=== PATIENT | female | born 1935 | race Caucasian/White ===

== ENCOUNTER 2017-03-02 13:10 | Inpatient (IN) | payer OTHER ==
[~2017-03-02] VITALS: Ht 162.6 cm; Wt 80.0 kg
[2017-03-02] VITALS (9 sets, daily range): BP systolic 111–138; BP diastolic 65–81
[~2017-03-02 13:10] MED LIST: ARMD EYE SUPPORT PO; ASPIRIN EC325 MG PO; CHILD ASPIRIN81 M1 PO; GLUCOSAMINE &1 EAC1 PO; HYDROCHLOROTH12.5 M3 PO; HYDROCODON-ACE1 EAC7 PO; IRON325 MG PO; PRAVASTATIN SOD40 MG PO; PRILOSEC20 MG PO; SENNA-TIME S T1 EACH PO; TYLENOL EXTRA500 MG PO
[2017-03-02 13:40] LABS: HEMATOCRIT 39.5 % (36.0-46.0); MCH 29.7 PG (29.0-34.0); MCHC 32.7 G/DL (30.0-36.0); MCV 90.8 FL (83-99); MEAN PLAT.VOLUME 11.1 uM^3 (9.5-12.4); PLATELET COUNT 169 K/uL (156-360); RBC DIS.WIDTH-CV 15.6 % (11.8-14.6); RBC DIS.WIDTH-SD 51.1 % (39-53); RED BLOOD COUNT 4.35 M/uL (3.80-5.20); WHITE BLOOD COUNT 5.5 K/uL (4.1-10.2)
[2017-03-02 13:53] LABS: CHLORIDE 108 mEq/L (99-109); POTASSIUM 3.5 mEq/L (3.7-5.4); SODIUM 139 mEq/L (136-147)
[2017-03-02 13:55] LABS: GLUCOSE 183 mg/dL (70-99)
[2017-03-02 13:56] LABS: ANION GAP 10 MEQ/L (2-14)
[2017-03-02 13:59] LABS: GFR ESTIMATE (CALCULATED) > 59 mL/min/; UREA NITROGEN (BUN) 14 mg/dL (9-23)
[2017-03-02 14:01] LABS: TROP-I INTERPRETATION NEGATIVE; TROPONIN-I 0.02 ng/mL (0.0-0.30)
[2017-03-02] MEDS ORDERED: MACULAR VITAMI1 EACH PO (15:49)
[2017-03-02] MEDS ORDERED: LO-DOSE ASPIRIN81 M1 PO (15:49)
[2017-03-02] MEDS ORDERED: PRAVASTATIN SOD20 MG PO (15:51)
[2017-03-02] MEDS ORDERED: VITAMIN PO (15:54)
[2017-03-02] MEDS ORDERED: DUONEB 2.5-0.5 M3 ML AEROSOL (15:55)
[2017-03-02] MEDS ORDERED: MUCINEX DM ER1 EACH PO (15:55)
[2017-03-02] MEDS ORDERED: [UNRECOGNIZED DRUG - CODE] PO (15:56)
[2017-03-03] VITALS (17 sets, daily range): BP systolic 115–173; BP diastolic 57–98
[2017-03-03 05:39] LABS: HEMATOCRIT 33.6 % (36.0-46.0); MCHC 32.7 G/DL (30.0-36.0); MCV 91.6 FL (83-99); MEAN PLAT.VOLUME 11.1 uM^3 (9.5-12.4); PLATELET COUNT 153 K/uL (156-360); RBC DIS.WIDTH-CV 15.6 % (11.8-14.6); RBC DIS.WIDTH-SD 52.8 % (39-53); RED BLOOD COUNT 3.67 M/uL (3.80-5.20); WHITE BLOOD COUNT 4.7 K/uL (4.1-10.2)
[2017-03-03 05:59] LABS: INTER. NORMALIZED RATIO 1.2; PROTHROMBIN TIME 12.3 (9.2-11.2)
[2017-03-03 06:10] LABS: ANION GAP 6 MEQ/L (2-14); CHLORIDE 109 MEQ/L (99-109); GFR ESTIMATE (CALCULATED) > 59 mL/min/; GLUCOSE 128 mg/dL (70-99); POTASSIUM 3.4 MEQ/L (3.7-5.4); SAMPLE HEMOLYSIS CHECK 0; SAMPLE ICTERIC CHECK 0; SAMPLE LIPEMIA CHECK 0; SODIUM 140 MEQ/L (136-147); UREA NITROGEN (BUN) 15 mg/dL (9-23)
[2017-03-03 08:51] LABS: D-DIMER ELISA 0.71 mg/L FEU (< 0.57)
[2017-03-03 09:13] LABS: TROP-I INTERPRETATION NEGATIVE; TROPONIN-I < 0.01 ng/mL (0.0-0.30)
[2017-03-03 11:46] LABS: ADD MIUA? YES; BILIRUBIN NEGATIVE; BLOOD NEGATIVE; COLOR YELLOW ((YELLOW)); GLUCOSE (STRIP) NEGATIVE; KETONES 5; LEUKOCYTES LARGE; NITRITE NEGATIVE; PROTEIN (STRIP) NEGATIVE; SPECIFIC GRAVITY 1.008 (1.000-1.030); UROBILINOGEN 0.2 MG/DL (0.2-1.0)
[2017-03-03 12:03] LABS: BACTERIA RARE /HPF; EPITHELIAL CELLS RARE /HPF; MUCUS TRACE /LPF; RED BLOOD CELLS 0-5 /HPF (0-5); UCUL ADDED? NO; WHITE BLOOD CELLS 0-5 /HPF (0-5)
[2017-03-03 15:47] LABS: TROP-I INTERPRETATION NEGATIVE; TROPONIN-I < 0.01 ng/mL (0.0-0.30)
[2017-03-03 21:17] LABS: TROP-I INTERPRETATION NEGATIVE; TROPONIN-I 0.04 ng/mL (0.0-0.30)
[2017-03-04 04:00] VITALS: BP 141/86
[2017-03-04 05:27] LABS: EOSINOPHIL (%) 1.9 % (0-5); EOSINOPHIL COUNT 0.1 K/uL (0-0.3); HEMATOCRIT 35.1 % (36.0-46.0); IMMATURE GRANULOCYTE (%) 0.3 % (0.0-0.7); INSTRUMENT ABS NEUTROPHIL CT 3.8 K/uL; LYMPHOCYTE COUNT 1.3 K/uL (1.0-2.8); MCH 30.6 PG (29.0-34.0); MCV 92.6 FL (83-99); MEAN PLAT.VOLUME 11.3 uM^3 (9.5-12.4); MONOCYTE (%) 9.7 % (3-12); MONOCYTE COUNT 0.6 K/uL (0-0.8); NEUTROPHIL (%) 65.8 % (45-76); NEUTROPHIL COUNT 3.8 K/uL (1.8-6.4); PLATELET COUNT 168 K/uL (156-360); RBC DIS.WIDTH-CV 15.8 % (11.8-14.6); RBC DIS.WIDTH-SD 53.7 % (39-53); RED BLOOD COUNT 3.79 M/uL (3.80-5.20); WHITE BLOOD COUNT 5.8 K/uL (4.1-10.2)
[2017-03-04 05:57] LABS: ALKALINE PHOSPHATASE 59 IU/L (3-129); ANION GAP 8 MEQ/L (2-14); CHLORIDE 107 MEQ/L (99-109); GFR ESTIMATE (CALCULATED) > 59 mL/min/; GLUCOSE 107 mg/dL (70-99); POTASSIUM 4.1 MEQ/L (3.7-5.4); SAMPLE HEMOLYSIS CHECK 0; SAMPLE ICTERIC CHECK 0; SAMPLE LIPEMIA CHECK 0; SODIUM 140 MEQ/L (136-147); TOTAL BILIRUBIN 0.8 MG/DL (0.0-1.0); UREA NITROGEN (BUN) 11 mg/dL (9-23)
[2017-03-04 11:13] VITALS: BP 141/78
[2017-03-04 12:05] VITALS: BP 145/71
[2017-03-04 16:07] VITALS: BP 129/75
[2017-03-04 19:20] VITALS: BP 142/69
[2017-03-04 23:14] VITALS: BP 123/65
[2017-03-05 04:00] VITALS: BP 150/70
[2017-03-05 05:29] LABS: EOSINOPHIL (%) 0.6 % (0-5); HEMATOCRIT 34.9 % (36.0-46.0); IMMATURE GRANULOCYTE (%) 0.4 % (0.0-0.7); INSTRUMENT ABS NEUTROPHIL CT 4.9 K/uL; MCH 30.7 PG (29.0-34.0); MCHC 33.2 G/DL (30.0-36.0); MCV 92.3 FL (83-99); MEAN PLAT.VOLUME 11.4 uM^3 (9.5-12.4); MONOCYTE (%) 10.4 % (3-12); MONOCYTE COUNT 0.7 K/uL (0-0.8); NEUTROPHIL (%) 73.4 % (45-76); NEUTROPHIL COUNT 4.9 K/uL (1.8-6.4); PLATELET COUNT 183 K/uL (156-360); RED BLOOD COUNT 3.78 M/uL (3.80-5.20); WHITE BLOOD COUNT 6.7 K/uL (4.1-10.2)
[2017-03-05 05:59] LABS: ALKALINE PHOSPHATASE 62 IU/L (3-129); ANION GAP 9 MEQ/L (2-14); CHLORIDE 104 MEQ/L (99-109); GFR ESTIMATE (CALCULATED) > 59 mL/min/; GLUCOSE 144 mg/dL (70-99); POTASSIUM 4.7 MEQ/L (3.7-5.4); SAMPLE HEMOLYSIS CHECK 0; SAMPLE ICTERIC CHECK 0; SAMPLE LIPEMIA CHECK 0; SODIUM 139 MEQ/L (136-147); TOTAL BILIRUBIN 0.9 MG/DL (0.0-1.0); UREA NITROGEN (BUN) 14 mg/dL (9-23)
[2017-03-05 08:40] VITALS: BP 144/71
[2017-03-05 09:25] LABS: BASE EXCESS 5.2 mEq/L (-3 to +3); CARBOXY HGB 2.2 % (0-5); COMMENTS - BLOOD GASES A+C+; DEVICE HFNC; METHEMOGLOBIN 1.6 % (0-1.5); O2 FLOW 50 L/MIN; PCO2 39 mm Hg (35-45); PO2 78 mm Hg (80-100); SITE LR; pH 7.48 (7.35-7.45)
[2017-03-05 09:26] LABS: FI02 80 %; TOTAL RESP RATE 24 resp/min
[2017-03-05 11:17] VITALS: BP 124/79
[2017-03-05 16:09] VITALS: BP 133/73
[2017-03-05 19:20] VITALS: BP 148/85
[2017-03-05 22:44] VITALS: BP 131/63
[2017-03-06 03:15] VITALS: BP 136/88
[2017-03-06 05:13] LABS: EOSINOPHIL (%) 0 % (0-5); HEMATOCRIT 35.2 % (36.0-46.0); IMMATURE GRANULOCYTE (%) 0.5 % (0.0-0.7); INSTRUMENT ABS NEUTROPHIL CT 8.1 K/uL; LYMPHOCYTE COUNT 0.5 K/uL (1.0-2.8); MCHC 33.5 G/DL (30.0-36.0); MCV 92.4 FL (83-99); MEAN PLAT.VOLUME 11.3 uM^3 (9.5-12.4); MONOCYTE (%) 2.5 % (3-12); MONOCYTE COUNT 0.2 K/uL (0-0.8); NEUTROPHIL (%) 91.7 % (45-76); NEUTROPHIL COUNT 8.1 K/uL (1.8-6.4); PLATELET COUNT 190 K/uL (156-360); RBC DIS.WIDTH-CV 15.9 % (11.8-14.6); RBC DIS.WIDTH-SD 53.7 % (39-53); RED BLOOD COUNT 3.81 M/uL (3.80-5.20); WHITE BLOOD COUNT 8.8 K/uL (4.1-10.2)
[2017-03-06 05:58] LABS: ALKALINE PHOSPHATASE 62 IU/L (3-129); ANION GAP 9 MEQ/L (2-14); CHLORIDE 103 MEQ/L (99-109); GFR ESTIMATE (CALCULATED) > 59 mL/min/; POTASSIUM 4.8 MEQ/L (3.7-5.4); SAMPLE HEMOLYSIS CHECK 0; SAMPLE ICTERIC CHECK 0; SAMPLE LIPEMIA CHECK 0; SODIUM 139 MEQ/L (136-147); TOTAL BILIRUBIN 0.8 MG/DL (0.0-1.0); UREA NITROGEN (BUN) 20 mg/dL (9-23)
[2017-03-06 06:00] LABS: GLUCOSE 228 mg/dL (70-99)
[2017-03-06 09:00] VITALS: BP 121/73
[2017-03-06 12:05] VITALS: BP 132/70
[2017-03-06] MEDS ORDERED: XARELTO20 MG PO (14:05)
[2017-03-06 16:07] VITALS: BP 139/73
[2017-03-06 20:18] VITALS: BP 147/86
[2017-03-06 23:08] VITALS: BP 153/86
[2017-03-07 03:37] VITALS: BP 127/64
[2017-03-07 08:00] VITALS: BP 128/68
[2017-03-07 08:01] LABS: EOSINOPHIL (%) 0 % (0-5); HEMATOCRIT 35.4 % (36.0-46.0); IMMATURE GRANULOCYTE (%) 0.6 % (0.0-0.7); IMMATURE GRANULOCYTE COUNT 0.1 K/uL; INSTRUMENT ABS NEUTROPHIL CT 10.9 K/uL; LYMPHOCYTE COUNT 0.4 K/uL (1.0-2.8); MCH 29.7 PG (29.0-34.0); MCHC 31.9 G/DL (30.0-36.0); MCV 92.9 FL (83-99); MEAN PLAT.VOLUME 11.4 uM^3 (9.5-12.4); MONOCYTE COUNT 0.6 K/uL (0-0.8); NEUTROPHIL (%) 90.9 % (45-76); NEUTROPHIL COUNT 10.9 K/uL (1.8-6.4); PLATELET COUNT 212 K/uL (156-360); RBC DIS.WIDTH-CV 16.1 % (11.8-14.6); RBC DIS.WIDTH-SD 54.4 % (39-53); RED BLOOD COUNT 3.81 M/uL (3.80-5.20); WHITE BLOOD COUNT 11.9 K/uL (4.1-10.2)
[2017-03-07 08:44] LABS: ALKALINE PHOSPHATASE 65 IU/L (3-129); ANION GAP 9 MEQ/L (2-14); CHLORIDE 104 MEQ/L (99-109); GFR ESTIMATE (CALCULATED) > 59 mL/min/; GLUCOSE 248 mg/dL (70-99); POTASSIUM 5.1 MEQ/L (3.7-5.4); SAMPLE HEMOLYSIS CHECK 0; SAMPLE ICTERIC CHECK 0; SAMPLE LIPEMIA CHECK 0; SODIUM 139 MEQ/L (136-147); UREA NITROGEN (BUN) 28 mg/dL (9-23)
[2017-03-07 08:53] LABS: TOTAL BILIRUBIN 0.6 MG/DL (0.0-1.0)
[2017-03-07 12:07] VITALS: BP 131/82
[2017-03-07 17:00] VITALS: BP 135/66
[2017-03-07 20:00] VITALS: BP 123/64
[2017-03-08 04:00] VITALS: BP 129/93
[2017-03-08 07:44] LABS: EOSINOPHIL (%) 0.1 % (0-5); IMMATURE GRANULOCYTE (%) 0.5 % (0.0-0.7); IMMATURE GRANULOCYTE COUNT 0.1 K/uL; INSTRUMENT ABS NEUTROPHIL CT 8.6 K/uL; LYMPHOCYTE COUNT 0.4 K/uL (1.0-2.8); MCH 31.5 PG (29.0-34.0); MCHC 33.9 G/DL (30.0-36.0); MCV 92.7 FL (83-99); MEAN PLAT.VOLUME 11.7 uM^3 (9.5-12.4); MONOCYTE COUNT 0.5 K/uL (0-0.8); NEUTROPHIL (%) 90.4 % (45-76); NEUTROPHIL COUNT 8.6 K/uL (1.8-6.4); NRBC (%) 0.2 /100 WBC (0-0); PLATELET COUNT 216 K/uL (156-360); RBC DIS.WIDTH-CV 15.9 % (11.8-14.6); RBC DIS.WIDTH-SD 53.7 % (39-53); RED BLOOD COUNT 3.56 M/uL (3.80-5.20); WHITE BLOOD COUNT 9.5 K/uL (4.1-10.2)
[2017-03-08 07:54] LABS: ALKALINE PHOSPHATASE 62 IU/L (3-129); ANION GAP 8 MEQ/L (2-14); CHLORIDE 100 MEQ/L (99-109); GFR ESTIMATE (CALCULATED) > 59 mL/min/; GLUCOSE 303 mg/dL (70-99); POTASSIUM 5.3 MEQ/L (3.7-5.4); SAMPLE HEMOLYSIS CHECK 2; SAMPLE ICTERIC CHECK 0; SAMPLE LIPEMIA CHECK 0; SODIUM 135 MEQ/L (136-147); TOTAL BILIRUBIN 0.6 MG/DL (0.0-1.0); UREA NITROGEN (BUN) 30 mg/dL (9-23)
[2017-03-08 08:00] VITALS: BP 141/69
[2017-03-08 11:06] LABS: GFR ESTIMATE (CALCULATED) > 59 mL/min/
[2017-03-08 11:08] LABS: VANCOMYCIN, TROUGH 6.6 MCG/ML (10-20)
[2017-03-08 12:00] VITALS: BP 138/62
[2017-03-08 17:04] VITALS: BP 122/75
[2017-03-08 20:00] VITALS: BP 146/87
[2017-03-08 23:55] VITALS: BP 131/74
[2017-03-09 04:00] VITALS: BP 134/65
[2017-03-09 06:55] LABS: EOSINOPHIL (%) 0 % (0-5); HEMATOCRIT 34.3 % (36.0-46.0); IMMATURE GRANULOCYTE (%) 0.9 % (0.0-0.7); IMMATURE GRANULOCYTE COUNT 0.1 K/uL; INSTRUMENT ABS NEUTROPHIL CT 7.2 K/uL; LYMPHOCYTE COUNT 0.3 K/uL (1.0-2.8); MCH 29.4 PG (29.0-34.0); MCHC 32.4 G/DL (30.0-36.0); MCV 90.7 FL (83-99); MEAN PLAT.VOLUME 11.3 uM^3 (9.5-12.4); MONOCYTE (%) 4.9 % (3-12); MONOCYTE COUNT 0.4 K/uL (0-0.8); NEUTROPHIL (%) 90.3 % (45-76); NEUTROPHIL COUNT 7.2 K/uL (1.8-6.4); NRBC (%) 0.3 /100 WBC (0-0); PLATELET COUNT 189 K/uL (156-360); RBC DIS.WIDTH-CV 15.2 % (11.8-14.6); RBC DIS.WIDTH-SD 50.3 % (39-53); RED BLOOD COUNT 3.78 M/uL (3.80-5.20); WHITE BLOOD COUNT 7.9 K/uL (4.1-10.2)
[2017-03-09 07:34] LABS: ANION GAP 7 MEQ/L (2-14); CHLORIDE 99 MEQ/L (99-109); GFR ESTIMATE (CALCULATED) > 59 mL/min/; GLUCOSE 328 mg/dL (70-99); SAMPLE HEMOLYSIS CHECK 0; SAMPLE ICTERIC CHECK 0; SAMPLE LIPEMIA CHECK 0; SODIUM 138 MEQ/L (136-147); UREA NITROGEN (BUN) 31 mg/dL (9-23)
[2017-03-09 07:39] LABS: POTASSIUM 4.1 MEQ/L (3.7-5.4)
[2017-03-09 09:00] VITALS: BP 139/65
[2017-03-09 12:00] VITALS: BP 168/71
[2017-03-09 16:00] VITALS: BP 136/87
[2017-03-09 17:29] LABS: POINT-OF-CARE METER ID UU13113698
[2017-03-09 19:15] VITALS: BP 132/62
[2017-03-09] MEDS ORDERED: MACULAR HEALTH1 EAC1 PO (19:37)
[2017-03-09 22:44] LABS: GLUCOSE 380 mg/dL (70-99)
[2017-03-09 22:59] VITALS: BP 153/81
[2017-03-10 04:20] VITALS: BP 160/81
[2017-03-10 07:37] LABS: Estimated Average Glucose 148 mg/dL (70-123); HEMOGLOBIN A1c (GLYCOHEMOGLOB) 6.8 % HGB (Below 5.7)
[2017-03-10 08:23] LABS: POINT-OF-CARE METER ID UU14174216; POINT-OF-CARE USER ID ENVKC36
[2017-03-10 08:45] VITALS: BP 133/67
[2017-03-10 11:20] VITALS: BP 138/68
[2017-03-10 11:46] LABS: POINT-OF-CARE METER ID UU13113698; POINT-OF-CARE USER ID ENVKC36
[2017-03-10 12:42] LABS: POINT-OF-CARE METER ID UU13113698
[2017-03-10 15:38] VITALS: BP 145/72
[2017-03-10 16:27] LABS: POINT-OF-CARE METER ID UU13113698; POINT-OF-CARE USER ID ENVKC36
[2017-03-10 20:09] VITALS: BP 153/67
[2017-03-10 23:45] VITALS: BP 133/71
[2017-03-11 04:25] VITALS: BP 139/64
[2017-03-11 06:30] LABS: ANION GAP 8 MEQ/L (2-14); CHLORIDE 98 MEQ/L (99-109); GFR ESTIMATE (CALCULATED) > 59 mL/min/; GLUCOSE 268 mg/dL (70-99); POTASSIUM 3.4 MEQ/L (3.7-5.4); SAMPLE HEMOLYSIS CHECK 0; SAMPLE ICTERIC CHECK 0; SAMPLE LIPEMIA CHECK 0; SODIUM 138 MEQ/L (136-147); UREA NITROGEN (BUN) 29 mg/dL (9-23)
[2017-03-11 07:58] VITALS: BP 146/70
[2017-03-11 12:10] VITALS: BP 131/61
[2017-03-11] MEDS ORDERED: ALPRAZOLAM0.25 M2 PO (15:39)
[2017-03-11] MEDS ORDERED: LEVEMIR100 UNIT/2 SC (15:39)
[2017-03-11] MEDS ORDERED: PREDNISONE20 MG PO (15:39)
[2017-03-11] MEDS ORDERED: DOCUSATE SODIU100 MG PO (15:39)
[2017-03-11] MEDS ORDERED: ADVAIR HFA120 INHALA IH (15:39)
[2017-03-11] MEDS ORDERED: LEVOFLOXACIN750 MG PO (15:39)
[2017-03-11] MEDS ORDERED: GUAIFENESI100 MG/5 M PO (15:39)
[2017-03-11] MEDS ORDERED: NOVOLOG PE100 UNITS/ SC ×2 (15:39)
[2017-03-11] MEDS ORDERED: CARDIZEM60 MG PO ×2 (15:39→15:49)
[2017-03-11] MEDS ORDERED: LASIX20 MG PO (15:41)
[2017-03-11] MEDS ORDERED: CARDIZEM CD240 MG PO (15:45)
[2017-03-11] MEDS ORDERED: POTASSIUM CHLO20 ME1 PO (15:47)
[2017-03-11] MEDS ORDERED: LASIX40 MG PO (15:47)
[2017-03-11 16:15] VITALS: BP 127/86
== END 2017-03-11 18:16 | DRG 308 ==
LOC: EME 13:10 → 4EAST 15:05 → EDOF 15:05 → 4EAST 17:08
PROVIDERS: Emergency Medicine; Hospitalist; Internal Medicine; Internal Medicine Cardiovascular Disease
DX: I48.91 Unspecified atrial fibrillation (principal); J96.01 Acute respiratory failure with hypoxia; J18.9 Pneumonia, unspecified organism; I50.31 Acute diastolic (congestive) heart failure; J44.0 Chronic obstructive pulmonary disease with (acute) lower respiratory infection; J90 Pleural effusion, not elsewhere classified; J98.11 Atelectasis; K21.9 Gastro-esophageal reflux disease without esophagitis; M19.90 Unspecified osteoarthritis, unspecified site; E78.5 Hyperlipidemia, unspecified; E87.6 Hypokalemia; H35.30 Unspecified macular degeneration; I11.0 Hypertensive heart disease with heart failure; R73.03 Prediabetes; I25.10 Atherosclerotic heart disease of native coronary artery without angina pectoris; I27.2 Other secondary pulmonary hypertension; E66.9 Obesity, unspecified; Z68.30 Body mass index [BMI] 30.0-30.9, adult; Z85.828 Personal history of other malignant neoplasm of skin; Z82.3 Family history of stroke; Z83.3 Family history of diabetes mellitus; Z82.49 Family history of ischemic heart disease and other diseases of the circulatory system
CPT/HCPCS: 36600; 71010; 71020; 71275; 80048; 80053; 80202; 81003; 82565; 82803; 82948; 83036; 83735; 83880; 84443; 84484; 84999; 85025; 85027; 85379; 85610; 93005; 93306; 93970; 94010; 94640; 94640 76; 94760; 94799; 99202; 99281; 99285; J0456; J0692; J1650; J1815; J1940; J2920; J2930; J3370; J7050

== ENCOUNTER 2017-03-30 04:13 | Observation (INO) | payer OTHER ==
[~2017-03-30] VITALS: Ht 162.6 cm; Wt 74.4 kg
[~2017-03-30 04:13] MED LIST changes: +ADVAIR HFA120 INHALA IH; +ALPRAZOLAM0.25 M2 PO; +CARDIZEM CD240 MG PO; +CARDIZEM60 MG PO; +DOCUSATE SODIU100 MG PO; +DUONEB 2.5-0.5 M3 ML AEROSOL; +GUAIFENESI100 MG/5 M PO; +LASIX20 MG PO; +LASIX40 MG PO; +LEVEMIR100 UNIT/2 SC; +LEVOFLOXACIN750 MG PO; +LO-DOSE ASPIRIN81 M1 PO; +MACULAR HEALTH1 EAC1 PO; +MACULAR VITAMI1 EACH PO; +MUCINEX DM ER1 EACH PO; +NOVOLOG PE100 UNITS/ SC; +POTASSIUM CHLO20 ME1 PO; +PRAVASTATIN SOD20 MG PO; +PREDNISONE20 MG PO; +VITAMIN PO; +XARELTO20 MG PO; +[UNRECOGNIZED DRUG - CODE] PO
[2017-03-30 05:28] LABS: CHLORIDE 109 mEq/L (99-109); POTASSIUM 3.1 mEq/L (3.7-5.4); SODIUM 144 mEq/L (136-147)
[2017-03-30 05:30] LABS: GLUCOSE 131 mg/dL (70-99)
[2017-03-30 05:31] LABS: ANION GAP 10 MEQ/L (2-14)
[2017-03-30 05:33] LABS: HEMATOCRIT 34.4 % (36.0-46.0); MCH 29.9 PG (29.0-34.0); MCHC 33.4 G/DL (30.0-36.0); MCV 89.6 FL (83-99); MEAN PLAT.VOLUME 10.6 uM^3 (9.5-12.4); RBC DIS.WIDTH-CV 17.4 % (11.8-14.6); RBC DIS.WIDTH-SD 56.5 % (39-53); RED BLOOD COUNT 3.84 M/uL (3.80-5.20); WHITE BLOOD COUNT 4.7 K/uL (4.1-10.2)
[2017-03-30 05:34] LABS: GFR ESTIMATE (CALCULATED) > 59 mL/min/
[2017-03-30 05:35] LABS: PLATELET COUNT 177 K/uL (156-360); UREA NITROGEN (BUN) 13 mg/dL (9-23)
[2017-03-30 05:42] LABS: TROP-I INTERPRETATION NEGATIVE; TROPONIN-I < 0.01 ng/mL (0.0-0.30)
[2017-03-30] MEDS ORDERED: CARTIA XT240 MG PO (10:13)
[2017-03-30] MEDS ORDERED: LASIX40 MG PO (10:14)
[2017-03-30] MEDS ORDERED: METFORMIN HCL500 MG PO (10:15)
[2017-03-30] MEDS ORDERED: PRILOSEC20 MG PO (10:15)
[2017-03-30] MEDS ORDERED: K-DUR20 MEQ PO (10:16)
[2017-03-30] MEDS ORDERED: PRAVACHOL20 MG PO (10:16)
[2017-03-30] MEDS ORDERED: ASPIRIN81 M2 PO (10:17)
[2017-03-30] MEDS ORDERED: XARELTO20 MG PO (10:17)
[2017-03-30] MEDS ORDERED: MACULAR HEALTH1 EAC1 PO (10:19)
[2017-03-30 11:29] VITALS: BP 130/66
[2017-03-30 12:53] LABS: Estimated Average Glucose 148 mg/dL (70-123); HEMOGLOBIN A1c (GLYCOHEMOGLOB) 6.8 % HGB (Below 5.7)
[2017-03-30 13:06] LABS: ALKALINE PHOSPHATASE 61 IU/L (3-129); DIRECT BILIRUBIN 0.1 mg/dL (0.0-0.3); LIPASE 24 U/L (1.0-51.0); TOTAL BILIRUBIN 0.6 MG/DL (0.0-1.0)
[2017-03-30 13:22] LABS: TROP-I INTERPRETATION NEGATIVE; TROPONIN-I < 0.01 ng/mL (0.0-0.30)
[2017-03-30 16:25] VITALS: BP 119/64
[2017-03-30 18:57] LABS: TROP-I INTERPRETATION NEGATIVE; TROPONIN-I 0.04 ng/mL (0.0-0.30)
[2017-03-30 20:35] VITALS: BP 101/59
[2017-03-30 23:45] VITALS: BP 108/56
[2017-03-31 03:49] VITALS: BP 119/62
[2017-03-31 07:17] VITALS: BP 117/75
== END 2017-03-31 11:55 | disposition home or self-care (01) ==
LOC: EME 04:13 → EDOF 06:54 → 5WEST 06:54 → ENRESERV 06:55 → EDOF 07:11 → 5WEST 08:23
PROVIDERS: Emergency Medicine; Nurse Practitioner Adult Health
DX: R07.9 Chest pain, unspecified (principal); J18.9 Pneumonia, unspecified organism; I48.91 Unspecified atrial fibrillation; E87.6 Hypokalemia; J44.9 Chronic obstructive pulmonary disease, unspecified; I25.10 Atherosclerotic heart disease of native coronary artery without angina pectoris; I10 Essential (primary) hypertension; E11.9 Type 2 diabetes mellitus without complications; E78.5 Hyperlipidemia, unspecified; E66.9 Obesity, unspecified; Z68.28 Body mass index [BMI] 28.0-28.9, adult; Z79.01 Long term (current) use of anticoagulants; Z88.6 Allergy status to analgesic agent; Z79.82 Long term (current) use of aspirin
CPT/HCPCS: 71010; 80048; 80076; 83036; 83690; 84484; 85027; 93005; 99281; 99284; G0378; J0696; J7050